=== PATIENT | female | born 1990 | race Caucasian/White ===

== ENCOUNTER 2021-08-14 20:16 | Emergency (ER) | payer OTHER ==
[~2021-08-14] VITALS: Ht 121.9 cm; Wt 46.3 kg
== END 2021-08-14 23:11 | disposition home or self-care (01) ==
LOC: ER 20:16
DX: O20.9 Hemorrhage in early pregnancy, unspecified (principal)

== ENCOUNTER 2022-05-11 16:12 | Outpatient (CLI) | payer OTHER ==
[2022-05-11] MEDS ORDERED: PRENATAL CAPLE1 EAC1 (16:53)
[2022-05-11] MEDS ORDERED: VITAMIN C100 MG PO (16:54)
[2022-05-11] MEDS ORDERED: PROBIOTIC250 MG (16:54)
== END 2022-05-11 18:54 | disposition left against medical advice (07) ==
LOC: OBS/DEL 16:12
PROVIDERS: ATTEND Student in an Organized Health Care Education/Training Program
DX: O9A.212 Injury, poisoning and certain other consequences of external causes complicating pregnancy, second trimester (principal); S36.30XA Unspecified injury of stomach, initial encounter; Z3A.18 18 weeks gestation of pregnancy; W18.39XA Other fall on same level, initial encounter; Y93.01 Activity, walking, marching and hiking; Y92.009 Unspecified place in unspecified non-institutional (private) residence as the place of occurrence of the external cause; Y99.9 Unspecified external cause status

== ENCOUNTER → 2022-05-11 | Emergency (ER) | payer OTHER ==
[~2022-05-11] MED LIST: PRENATAL CAPLE1 EAC1; PROBIOTIC250 MG; VITAMIN C100 MG PO
== END | disposition left against medical advice (07) ==
LOC: ER 14:12
DX: Z53.21 Procedure and treatment not carried out due to patient leaving prior to being seen by health care provider (principal)